=== PATIENT | male | born 1965 | race Caucasian/White ===

== ENCOUNTER → 2023-11-06 15:23 | Outpatient (REF) | payer BC, SELFPAY | LOC: HWRAD 15:23 | PROVIDERS: ATTENDING PHYSICIAN Internal Medicine Critical Care Medicine; FAMILY PHYSICIAN Family Medicine | DX: J45.20 Mild intermittent asthma, uncomplicated (principal) | CPT/HCPCS: 71046 ==

== ENCOUNTER → 2023-11-15 | Outpatient (REF) | payer BC, SELFPAY | LOC: DHSLP | PROVIDERS: ATTENDING PHYSICIAN Internal Medicine Critical Care Medicine; FAMILY PHYSICIAN Family Medicine | DX: G47.30 Sleep apnea, unspecified (principal); R06.83 Snoring | CPT/HCPCS: 95800 ==

== ENCOUNTER → 2024-03-29 09:00 | Outpatient (REF) | payer BC, SELFPAY | LOC: HWRAD 09:00 | PROVIDERS: ATTENDING PHYSICIAN Otolaryngology; FAMILY PHYSICIAN Family Medicine | DX: H93.A3 Pulsatile tinnitus, bilateral (principal) | CPT/HCPCS: 70496; Q9967 ==